=== PATIENT | female | born 1980 | race Native Hawaiian/Other Pacific Islander ===

== ENCOUNTER → 2020-03-30 10:08 | Outpatient (CLI) | payer OTHER, SELFPAY ==
[2020-03-31 09:23] LABS: COVID19 Sendout NOT DETECTED (Not Detect)
== END ==
PROVIDERS: Visit Provider Registered Nurse
DX: Z11.59 Encounter for screening for other viral diseases (principal)
CPT/HCPCS: 87635

== ENCOUNTER → 2020-04-02 09:23 | Outpatient (CLI) | payer OTHER, SELFPAY ==
--- NOTE | 2020-04-07 10:13 | PM.PFT.1 ---
Pulmonary Function Test Referral & Results Date Patient Seen: 04/02/20 Requesting provider: Lenny Aranda Results: The spirometry demonstrates an FVC of 4.07 L which is 110% of predicted. The FEV1 was measured at 3.42 L which is 113% of predicted. The FEV1/FVC ratio was 84 which is 101% of predicted. Following the administration of bronchodilator there was no appreciable change to above normal numbers. Lung volumes show an SVC of 3.90 L which is 112% of predicted. The diffusing capacity was measured at 33.99 which is 140% of predicted. The maximum voluntary ventilation was normal Interpretation: This study demonstrates normal spirometry Patient's diffusing capacity is significantly above expected normal. This can sometimes be seen in patients with asthma although the spirometry would argue against that (there is no evidence of air trapping). Other potential causes for increased diffusing capacity include left heart failure and or cardiac shunting. Clinical correlation suggested
== END ==
PROVIDERS: Referring Provider Internal Medicine Critical Care Medicine; Visit Provider Internal Medicine Critical Care Medicine
DX: R05 Cough (principal)
CPT/HCPCS: 94060; 94726; 94729

== ENCOUNTER 2022-02-19 15:55 | Emergency (ER) | payer OTHER, SELFPAY ==
[2022-02-19] VITALS (7 sets, daily range): BP systolic 123–134; BP diastolic 68–99; PULSE 77–89; RESP 18; TEMP 36.8–37.3; O2SAT 97–100
--- NOTE | 2022-02-19 18:04 | ED_ITS ---
HPI - Headache General Chief Complaint: Headache Stated Complaint: Covid+ headache, migraine Time Seen by Provider: 02/19/22 17:43 Mode of arrival: Ambulatory History of Present Illness HPI Narrative: 41F nonsmoker with known COVID+ presents with her significant other and a chief complaint of a gradually worsening headache over the past 24 hours. She does have a history of migraines but has not had 1 in quite some time. She denies any recent injury and has no neurologic symptoms such as blurring vision, trouble speech or focal extremity weakness. She takes no blood thinners. She was diagnosed with COVID last Sunday and was significantly ill for few days with typical respiratory complaints which have gradually improved and are largely absent at time of presentation. She has nausea but denies any vomiting. Her headache is worse with bright lights and loud noise, current level is 9/10. She states it is squeezing and frontal in nature, she denies radiation of pain. She has taken Tylenol and Motrin with little to no relief. She continues to have chills but denies any fever Related Data Allergies Allergy/AdvReac Type Severity Reaction Status Date / Time gluten Allergy Severe Abdominal Verified 02/19/22 18:38 Pain Review of Systems Review of Systems Narrative: GENERAL: See HPI HEENT: See HPI RESPIRATORY: See HPI CARDIOVASCULAR: Denies chest pain, palpitations, orthopnea, edema, GASTROINTESTINAL: Denies nausea, vomiting, abdominal pain, diarrhea, constipation, melena. : Denies dysuria, frequency, incontinence, hematuria, urinary retention. MUSCULOSKELETAL: denies weakness, joint pain, or bony pain SKIN: Denies rash, skin lesions, or other NEUROLOGIC: S see HPI PSYCHIATRIC: No concerning psychosocial issues. 12 point review of systems is negative except for those stated above Patient History Social History Smoking Status: Never smoker Smoking Status: Never smoker Exam Narrative Exam Narrative: GENERAL: [41] year old patient appears stated age. Well-developed patient, in mild distress. Rubbing her forehead, a calvin pulled up laying in a dark room. GCS 15 HEAD: Atraumatic. Normocephalic. EYES: Pupils equal round and reactive. Extraocular motions intact. No scleral icterus. No injection or drainage. ENT: Nose without bleeding, purulent drainage. Throat without erythema, tonsillar hypertrophy or exudate. Airway patent. NECK: Trachea midline. Non tender, no meningeal signs, negative Brudzinski's negative Kernig's days CARDIOVASCULAR: Regular rate and rhythm without murmurs, gallops, or rubs. RESPIRATORY: Clear to auscultation. Breath sounds equal bilaterally. No wheezes, rales, or rhonchi. GASTROINTESTINAL: Abdomen soft, non-tender, nondistended. EXTREMITIES: No edema or joint tenderness. BACK: Nontender without deformity or crepitance. No flank tenderness. NEURO: AOx3. SKIN: No rash or erythema of visible areas NIH Stroke Scale 1a. LOC: Patient is alert and keenly responsive (0) 1b. LOC Questions: Patient answers both LOC questions accurately (0) 1c. LOC Commands: Patient performs both tasks correctly (0) 2. Best Gaze: Normal (0) 3. Visual: No visual loss (0) 4. Facial palsy: Normal symmetrical movements (0) 5. Motor arm: No drift (0) 6. Motor leg: No drift (0) 7. Limb ataxia: Absent (0) 8. Sensory: Normal (0) 9. Best language: No aphasia; normal (0) 10. Dysarthria: Normal (0) 11. Extinction and inattention: No abnormality (0) NIHSS: 0 The uvular Initial Vital Signs Initial Vital Signs: Vital Signs Temperature 98.3 F 02/19/22 16:04 Pulse Rate 89 02/19/22 16:04 Respiratory Rate 18 02/19/22 16:04 Blood Pressure 134/79 02/19/22 16:04 Pulse Oximetry 100 02/19/22 16:04 Course Orders Ordered: Discontinued Medications Dexamethasone (Dexamethasone 10 Mg/Ml Vial) 10 mg IV NOW ONE Stop: 02/19/22 18:30 Last Admin: 02/19/22 18:57 Dose: 10 mg Documented by: AP Diphenhydramine HCl (Diphenhydramine 50 Mg/Ml Vial) 25 mg IV NOW ONE Stop: 02/19/22 18:30 Last Admin: 02/19/22 18:57 Dose: 25 mg Documented by: AP Sodium Chloride (Normal Saline 0.9%) 1,000 mls @ 1,000 mls/hr IV BOLUS ONE Stop: 02/19/22 19:28 Last Infusion: 02/19/22 20:08 Dose: 0 mls/hr Documented by: Admin: 02/19/22 18:56 Dose: 1,000 mls/hr Documented by: AP Ketorolac Tromethamine (Ketorolac 30 Mg/Ml Vial) 15 mg IV NOW ONE Stop: 02/19/22 18:30 Last Admin: 02/19/22 18:57 Dose: 15 mg Documented by: AP Metoclopramide HCl (Metoclopramide 10 Mg/2 Ml Inj) 10 mg IV NOW ONE Stop: 02/19/22 18:30 Last Admin: 02/19/22 18:57 Dose: 10 mg Documented by: AP Reevaluation(s) Reevaluation #1: Patient has significant improvement in symptoms after above-stated therapies Vital Signs Vital signs: Vital Signs - 8 hr 02/19/22 16:04 02/19/22 19:06 02/19/22 19:07 Temperature 98.3 F Pulse Rate 89 77 80 Respiratory Rate 18 Blood Pressure 134/79 130/99 H Pulse Oximetry 100 97 97 02/19/22 19:26 02/19/22 19:30 02/19/22 19:39 Temperature 99.1 F Pulse Rate 77 79 Respiratory Rate Blood Pressure 126/69 123/69 Pulse Oximetry 99 98 02/19/22 20:00 Temperature Pulse Rate 85 Respiratory Rate 18 Blood Pressure 131/68 Pulse Oximetry 98 MDM - Headache Lab Data Labs: Point of Care Testing Rapid Strep A Negative Glucose POC 82 MDM Narrative Medical decision making narrative: Headache considerations include, but not limited to: Subarachnoid hemorrhage, but unlikely as patient denies sudden onset of pain, not worst of life, or neck pain Meningitis considered, but thought unlikely given lack of Brudzinski's, Kernig's sign, altered mental status or fever Giant cell arteritis considered, but thought unlikely given lack of unilateral findings, pain in zoroastrian, vision change HTN Emergency considered, but thought unlikely given normal vitals Other serious diagnoses considered unlikely given lack of red flag findings such as sudden onset, increasing frequency, immunocompromise, systemic signs (fever, chills, stiff neck, or rash), focal neurologic findings, trauma, blood thinners, etc. Patient's symptoms improved over duration of stay with above-stated therapies. Findings and discharge diagnosis discussed with patient/family followed by verbalization of understanding Return precautions discussed with patient/family whom verbalize understanding. Discharge Plan Departure Patient Disposition: Home Clinical Impression: Migraine, COVID Instructions: DI for Headache, DI for COVID-19 (Suspected or Confirmed ) Activity Restrictions/Additional Instructions: *You have been diagnosed with [ Headache ] *What to do: *Take medications as directed *Follow up with your primary care provider in 2-3 days, call for an appointment. Let them know you were seen in the Emergency Department and that we ask that you be seen in follow up *Return to ER if you should have any new, worsening or concerning symptoms, such as [ fever > 101F, neck pain or stiffness, vomiting, confusion, seizure, focal weakness, vision change, speech deficit or other concerning symptoms ] *You have been diagnosed with [ COVID-19] *What to do: * per recommendations from the CDC and the [facility] Department of Health * stay home except to get medical care. Restrict activities outside your home, except for getting medical care. Do not go to work, school, or public areas. Avoid using public transportation, ride sharing, or taxis. * separate yourself from other people in your home. * call ahead before visiting your doctor * Wear a facemask * Cover your coughs and sneezes * Clean your hands often * Avoid sharing household items * Clean all high-touch services every day * Monitor your symptoms and seek prompt medical attention if your illness is worsening, particularly with difficulty in breathing. You may discontinue your isolation when: 1. You have been fever-free for at least 24 hours without the use of fever reducing medication, AND 2. Your symptoms are getting better, AND 3. At least 5 days have passed since symptoms first appeared 4. If you have fever, continue to stay home until fever resolves Individuals with laboratory confirmed COVID-19 who have not had any symptoms may discontinue home isolation when at least 5 days have passed since the date of their first COVID-19 diagnostic test and have had no subsequent illness You should notifiy any friends and family that have been in close contact *If up to date on COVID Vaccines, then they do not need to quarantine unless symptoms develop. Get tested on day 5 (or sooner if symptoms develop). Take precautions and watch for symptoms until day 10 *If NOT up to date on COVID Vaccines, then CDC recommends quarantine for at least 5 full days. Wear a well fitted mask at home if you must be around others. If they develop symptoms they should get tested. If they remain asymptomatic they should get tested on day 5. They should take precautions and monitor for symptoms until day 10. Referrals: Suzanne Tran ARNP [Primary Care Provider] -
--- NOTE | 2022-02-19 18:41 | PC.NURSE ---
pt relays that she has celiac dx and wants meds given in a way that they do not contain any gluten call made to [facility] clinical pharmacist at [phone] pharmacist reviewed all meds ordered and because all ordered meds are iv these ones do not contain gluten. he explained that it is typically po meds I will have to worry about containing gluten.
[2022-02-19] MEDS: SODIUM CHLORIDE 0.9% 1,000 ML 1000 ML IV (18:56)
[2022-02-19] MEDS: KETOROLAC 30 MG/ML VIAL 15 MG IV (18:57)
[2022-02-19] MEDS: diphenhydrAMINE 50 MG/ML VIAL 25 MG IV (18:57)
[2022-02-19] MEDS: DEXAMETHASONE 10 MG/ML VIAL IV (18:57)
[2022-02-19] MEDS: METOCLOPRAMIDE 10 MG/2 ML INJ IV (18:57)
== END 2022-02-19 20:14 | disposition home or self-care (01) ==
PROVIDERS: Emergency Provider Emergency Medicine; PCP Registered Nurse
DX: U07.1 COVID-19 (principal); G43.909 Migraine, unspecified, not intractable, without status migrainosus
CPT/HCPCS: 36415; 82962; 87880; 96374; 96375; 99284; J1100; J1200; J1885; J2765

== ENCOUNTER 2024-06-11 12:37 | Emergency (ER) | payer OTHER, SELFPAY ==
[2024-06-11] VITALS (18 sets, daily range): BP systolic 121–133; BP diastolic 69–78; PULSE 74–89; RESP 15–24; O2SAT 98–100; BMI 27.4
--- NOTE | 2024-06-11 12:53 | EKG_ITS ---
[address] [address] Test Date: 2024-06-11 Pat Name: Sonam Esther Department: Room: Gender: Female Lathe Set Up Person: : 1980 Requested By: Order Number: [id number] Reading MD: Dominic Brooks Measurements Intervals [place] Rate: 76 P: 67 FL: 142 QRS: 47 QRSD: 88 T: 52 QT: 388 QTc: 436 Interpretive Statements Normal sinus rhythm Electronically Signed On 06-16-2024 9:11:22 PDT by Dominic Brooks
--- NOTE | 2024-06-11 12:54 | DI.RAD.S_ITS ---
PROCEDURE: XR CHEST 1V INDICATIONS: chest pain TECHNIQUE: One view of the chest was acquired. COMPARISON: Outside Film, CR, XR CHEST 2 VIEWS, 11/12/2019, 10:22. FINDINGS: Surgical changes and devices: None. Lungs and pleura: Lungs are clear. No pleural effusions or pneumothorax. Mediastinum: Mediastinal contours appear normal. Heart size is normal. Bones and chest wall: No suspicious bony lesions. Overlying soft tissues appear unremarkable. IMPRESSION: No acute cardiopulmonary abnormality is seen. Dictated by: Omar Durbin M.D. on 06/11/2024 at 14:06 Approved by: Omar Durbin M.D. on 06/11/2024 at 14:07
--- NOTE | 2024-06-11 13:06 | ED.CHESTPAIN ---
HPI - Chest Pain General Chief Complaint: Chest Pain Stated Complaint: chest pain Time Seen by Provider: 06/11/24 13:06 Source: patient Mode of arrival: Ambulatory Limitations: no limitations History of Present Illness HPI narrative: Patient without any significant past medical history comes into the ED from home for evaluation of left-sided chest pressure states has been ongoing and persistent for the past day and a half. States that she has had history of this, however states that it has never lasted this long. She denies any recent trauma or falls, denies any pleuritic chest pain. Denies any other symptoms such as headache visual disturbances fever chills nausea vomiting abdominal pain or any other GI/ symptoms at this time. Related Data Allergies Allergy/AdvReac Type Severity Reaction Status Date / Time gluten Allergy Severe Abdominal Verified 02/19/22 18:38 Pain Review of Systems Review of Systems Narrative: HEENT: Denies headache, eye drainage, eye irritation, head trauma, sore throat, voice change Cardiovascular: Positive chest pain, Denies any palpitations, shortness of breath, tachycardia Respiratory: Denies any shortness of breath, cough, wheeze, stridor GI/: Denies any abdominal pain, nausea, vomiting, diarrhea, bright red blood per rectum, melanotic stools, urinary frequency, urinary retention, dysuria, hematuria MSK: Denies any joint pain, muscle pains, swelling Skin: Denies any rashes, lesions, discoloration Neuro: Denies any headache, lightheadedness, dizziness, fainting, weakness Psych: Denies SI/HI Patient History Social History Smoking Status: Never smoker Smoking Status: Never smoker alcohol intake frequency: other Substance Use Type: does not use Exam Narrative Exam Narrative: General: Cooperative, comfortable, well-developed, not in acute distress HEENT: Normocephalic, atraumatic, PERRLA, normal sclera, eyelids normal, Neck: Active full range of motion, atraumatic Chest: Normal to inspection, negative crepitus, no overlying erythema ecchymosis Respiratory: Normal respiratory effort, not in acute respiratory distress, clear to auscultation bilaterally negative cough, wheeze, tachypnea, rhonchi, rales Cardiology: Regular rate rhythm negative gallop, murmur, rubs GI/: Normal to inspection, soft, nonrigid, no tenderness to palpation, exam deferred MSK: Full range of active range of motion of all 4 extremities, atraumatic Skin: No rashes lesions noted Neuro: Alert awake oriented x3, moves all 4 extremities spontaneously, cranial nerves intact, able to answer all questions appropriately follows commands appropriately Psych: Cooperative, negative suicidal or homicidal ideations Initial Vital Signs Initial Vital Signs: Vital Signs Pulse Rate 89 06/11/24 12:45 Respiratory Rate 16 06/11/24 12:45 Blood Pressure 132/78 06/11/24 12:45 Pulse Oximetry 99 06/11/24 12:45 Oxygen Delivery Method Room Air 06/11/24 12:45 Course Orders Ordered: ED Orders 06/11/24 12:54 XR chest 1V Stat Complete Blood Count AUTO DIFF Stat Comprehensive Metabolic Panel Stat Lipase Stat Magnesium Stat NT-proBNP (BNP-Adult 18+) Stat PTT Partial Thromboplastin Lamin Stat Prothrombin Time INR Stat Troponin & CK Cardiac Panel Stat EKG-12 Lead Stat 06/11/24 14:50 Trop I [Troponin I] Stat Sodium Chloride (Normal Saline 0.9%) 1,000 mls @ 150 mls/hr IV CONT NICHOLAS Last Admin: 06/11/24 13:18 Dose: 150 mls/hr Documented By: CANDICE Discontinued Medications Aspirin (Aspirin 81 Mg Chew Tab) 324 mg PO NOW ONE Stop: 06/11/24 12:55 Last Admin: 06/11/24 13:18 Dose: 324 mg Documented By: CANDICE Vital Signs Vital signs: Vital Signs - 8 hr 06/11/24 12:45 06/11/24 12:51 06/11/24 12:52 Pulse Rate 89 79 77 Respiratory Rate 16 17 Blood Pressure 132/78 Pulse Oximetry 99 100 100 Oxygen Delivery Method Room Air 06/11/24 12:52 06/11/24 13:00 06/11/24 13:01 Pulse Rate 85 81 Respiratory Rate 23 16 Blood Pressure 133/75 Pulse Oximetry 100 99 Oxygen Delivery Method 06/11/24 13:01 06/11/24 13:30 06/11/24 14:00 Pulse Rate 78 82 Respiratory Rate 16 Blood Pressure 124/71 Pulse Oximetry 98 100 Oxygen Delivery Method 06/11/24 14:30 06/11/24 14:31 06/11/24 14:31 Pulse Rate 74 75 Respiratory Rate 15 19 Blood Pressure 131/72 Pulse Oximetry 100 99 Oxygen Delivery Method 06/11/24 14:40 06/11/24 14:40 06/11/24 14:50 Pulse Rate 78 Respiratory Rate 17 Blood Pressure 123/69 122/70 Pulse Oximetry 100 Oxygen Delivery Method 06/11/24 14:50 06/11/24 15:00 06/11/24 15:00 Pulse Rate 78 78 Respiratory Rate 21 21 Blood Pressure 123/73 Pulse Oximetry 100 100 Oxygen Delivery Method 06/11/24 15:10 06/11/24 15:10 06/11/24 15:20 Pulse Rate 84 83 Respiratory Rate 21 24 Blood Pressure 126/75 Pulse Oximetry 100 100 Oxygen Delivery Method 06/11/24 15:20 06/11/24 15:30 06/11/24 15:30 Pulse Rate 88 Respiratory Rate 22 Blood Pressure 121/70 125/71 Pulse Oximetry 100 Oxygen Delivery Method MDM - Chest Pain Differential Diagnosis Differential diagnosis: Likely pneumothorax, atypical chest pain, st elevation myocardial infarction and chest pain Condition is:: Improved Medical Records Data Attestation: I reviewed the patient's medical records. Lab Data Attestation: I reviewed the patient's lab results. 06/11/24 12:54 06/11/24 12:54 Labs: Lab Results 06/11/24 06/11/24 Range/Units 12:54 14:50 WBC 8.5 (4.5-11.0) X10^3/uL RBC 4.78 (4.0-5.2) X10^6/uL Hgb 14.6 (12.0-16.0) g/dL Hct 43.0 (36-46) % MCV 90.0 (80-100) fL MCH 30.5 (26-34) PG MCHC 33.9 (30-36) % RDW 12.5 (11.6-14.8) % Plt Count 204 (150-400) X10^3/uL Neut % (Auto) 72.8 (50-75) % Lymph % (Auto) 18.3 L (25-40) % Bowman % (Auto) 6.4 (3-14) % Eos % (Auto) 1.3 L (2-4) % Baso % (Auto) 1.2 (0-2) % Neut # (Auto) 6200 (9645-9895) /uL Lymph # (Auto) 1500 (4386-8735) /uL Bowman # (Auto) 500 (0-900) /uL Eos # (Auto) 100 (0-450) /uL Baso # (Auto) 100 (0-100) /uL PT 11.5 (9.4-12.5) SECONDS INR 1.0 (0.9-1.3) APTT 35 (25.1-36.5) SECONDS Sodium 136 L (137-145) mmol/L Potassium 4.0 (3.4-5.1) mmol/L Chloride 102 (98-107) mmol/L Carbon Dioxide 27 (22-32) mmol/L BUN 18 H (7-17) mg/dL Creatinine 0.66 (0.52-1.04) mg/dL Estimated GFR > 60 (>60) mL/min BUN/Creatinine Ratio 27.3 H (6-22) Glucose 80 (70-100) mg/dL Calcium 9.2 (8.4-10.2) mg/dL Magnesium 1.8 (1.6-2.3) mg/dL Total Bilirubin 1.1 (0.2-1.3) mg/dL AST 41 H (14-36) IU/L ALT 25 (<35) IU/L Alkaline Phosphatase 63 (38-126) U/L Total Creatine Kinase 195 H (30-135) U/L Troponin I < 0.012 < 0.012 (0.01-0.034) ng/mL NT-Pro-B Natriuret Pep 45 (<125) pg/mL Total Protein 7.7 (6.3-8.2) g/dL Albumin 4.4 (3.5-5.0) g/dL Globulin 3.3 (1.7-4.1) g/dL Albumin/Globulin Ratio 1.3 (1.0-2.8) Lipase 58 (23-300) U/L ECG Data Attestation: I personally reviewed and interpreted this ECG as follows: Interpretation: EKG interpreted ED physician, sinuses 76 beats per minute, QTC 436, normal axis, nonspecific ST changes no STEMI MDM Narrative Medical decision making narrative: Patient is a 44-year-old female without any significant past medical history comes into the ED from home for complaints of chest pain, patient's left side of the chest no pleuritic chest pain. Heart score 2, patient with improved symptoms after administration of medication here. Patient negative trop x2, EKG nonischemic in nature, chest x-ray without any pneumonia, patient was instructed to follow up with Cardiology and primary Care in an outpatient setting, verbalized understanding of this agrees with being discharged home with outpatient follow-up Discharge Plan Departure Patient Disposition: Home Clinical Impression: Chest pain, unspecified Qualifiers: Chest pain type: other chest pain Qualified Code(s): R07.89 - Other chest pain Referrals: Suzanne Tran ARNP [Primary Care Provider] - Leticia Mendez MD [Physician] - Stand Alone Forms: Patient Portal/API
[2024-06-11 13:11] LABS: Add Manual Diff / Slide Review NO; Basophils Absolute Auto 100 /uL (0-100); Basophils Percent Auto 1.2 % (0-2); Eosinophils Absolute Auto 100 /uL (0-450); Eosinophils Percent Auto 1.3 % (2-4); Hemoglobin 14.6 g/dL (12.0-16.0); Lymphocytes Absolute Auto 1500 /uL (1100-4500); Lymphocytes Percent Auto 18.3 % (25-40); Mean Corpuscular HGB Conc 33.9 % (30-36); Mean Corpuscular Hemoglobin 30.5 PG (26-34); Monocytes Absolute Auto 500 /uL (0-900); Monocytes Percent Auto 6.4 % (3-14); Neutrophils Absolute Auto 6200 /uL (1500-7000); Neutrophils Percent Auto 72.8 % (50-75); Platelet Count 204 X10^3/uL (150-400); Red Blood Cell Count 4.78 X10^6/uL (4.0-5.2); Red Cell Distribution Width 12.5 % (11.6-14.8); White Blood Cell Count 8.5 X10^3/uL (4.5-11.0)
[2024-06-11 13:18] LABS: Prothrombin Time 11.5 SECONDS (9.4-12.5)
[2024-06-11] MEDS: SODIUM CHLORIDE 0.9% 1,000 ML 150 ML IV (13:18)
[2024-06-11] MEDS: ASPIRIN 81 MG CHEW TAB 324 MG PO (13:18)
[2024-06-11 13:21] LABS: PTT Partial Thromboplastin Tim 35 SECONDS (25.1-36.5)
[2024-06-11 13:23] LABS: Alanine Aminotransferase 25 IU/L (<35); Albumin 4.4 g/dL (3.5-5.0); Albumin Globulin Ratio 1.3 (1.0-2.8); Alkaline Phosphatase 63 U/L (38-126); Aspartate Aminotransferase 41 IU/L (14-36); BUN Creatinine Ratio 27.3 (6-22); Bilirubin Total 1.1 mg/dL (0.2-1.3); Blood Urea Nitrogen 18 mg/dL (7-17); Calcium 9.2 mg/dL (8.4-10.2); Carbon Dioxide 27 mmol/L (22-32); Chloride 102 mmol/L (98-107); Creatine Kinase 195 U/L (30-135); Estimated Glomerular Filt Rate > 60 mL/min (>60); Globulin 3.3 g/dL (1.7-4.1); Glucose 80 mg/dL (70-100); HEMOLYSIS 29 (0-50); Lipase 58 U/L (23-300); Magnesium 1.8 mg/dL (1.6-2.3); Sodium 136 mmol/L (137-145); Total Protein 7.7 g/dL (6.3-8.2)
[2024-06-11 13:34] LABS: NT-proBNP (BNP-Adult 18+) 45 pg/mL (<125); Troponin I < 0.012 ng/mL (0.01-0.034)
[2024-06-11 15:28] LABS: Troponin I < 0.012 ng/mL (0.01-0.034)
== END 2024-06-11 16:04 | disposition home or self-care (01) ==
PROVIDERS: Emergency Provider Student in an Organized Health Care Education/Training Program; PCP Registered Nurse
DX: R07.89 Other chest pain (principal)
CPT/HCPCS: 36415; 71045; 80053; 82550; 83690; 83735; 83880; 84484; 85025; 85610; 85730; 93005; 99284

== ENCOUNTER 2024-09-24 16:43 | Emergency (ER) | payer OTHER, SELFPAY ==
[2024-09-24 16:47] VITALS: BP 152/83; PULSE 96; RESP 18; TEMP 37.1; O2SAT 96; BMI 27.4
--- NOTE | 2024-09-24 18:25 | ED.NECK ---
HPI - Neck Pain/Injury General Chief Complaint: Neck Pain/Injury Stated Complaint: head and neck pain s/p oral surgery 2 days ago Time Seen by Provider: 09/24/24 18:02 Mode of arrival: Ambulatory History of Present Illness HPI Narrative: 44-year-old female presents for neck pain. Patient had gum resection surgery 2 days ago and has been healing well. She did have some pain and saw her dental surgeon, who gave her some [place] for pain, which has been helping. Since yesterday patient has had right-sided posterior neck pain that wraps around her head to behind her right eye. She has been taking Tylenol and ibuprofen as well as a muscle relaxer she has at home without significant relief. Denies numbness, weakness, tingling. Related Data Previous Rx's Medication Instructions Recorded diazepam 2 mg tablet 2 mg PO BID PRN muscle spasm #8 09/24/24 tabs diazepam 2 mg tablet (Valium) 2 mg PO BID PRN muscle spasm #8 09/24/24 tabs Allergies Allergy/AdvReac Type Severity Reaction Status Date / Time gluten Allergy Severe Abdominal Verified 09/24/24 16:52 Pain Patient History Social History Smoking Status: Never smoker Smoking Status: Never smoker alcohol intake frequency: other Exam Initial Vital Signs Initial Vital Signs: Vital Signs Temperature 98.8 F 09/24/24 16:47 Pulse Rate 96 H 09/24/24 16:47 Respiratory Rate 18 09/24/24 16:47 Blood Pressure 152/83 H 09/24/24 16:47 Pulse Oximetry 96 09/24/24 16:47 Oxygen Delivery Method Room Air 09/24/24 16:47 Const: Awake, alert, uncomfortable, in pain Neck: No midline tenderness, no rigidity, reproducible tenderness along SCM on R Skin: Warm, Dry, intact, no rashes Neuro: AO x3, CN II-XII grossly intact, moves all extremities Course Orders Ordered: Discontinued Medications Diazepam (Diazepam 10 Mg/2 Ml Syringe) 3 mg IV NOW ONE Stop: 09/24/24 18:25 Last Admin: 09/24/24 18:40 Dose: 3 mg Documented By: JULIOCESAR Acetaminophen (Ofirmev) 1,000 mg in 100 mls @ 400 mls/hr IV NOW ONE Stop: 09/24/24 18:38 Last Infusion: 09/24/24 19:10 Dose: Infused Documented By: Admin: 09/24/24 18:41 Dose: 400 mls/hr Documented By: JULIOCESAR Ketorolac Tromethamine (Ketorolac 30 Mg/Ml Vial) 15 mg IV NOW ONE Stop: 09/24/24 18:25 Last Admin: 09/24/24 18:40 Dose: 15 mg Documented By: JULIOCESAR Vital Signs Vital signs: Vital Signs - 8 hr 09/24/24 20:34 Pulse Rate 80 Respiratory Rate 16 Blood Pressure 126/70 Pulse Oximetry 100 Oxygen Delivery Method Room Air MDM - Neck Pain/Injury MDM Narrative Medical decision making narrative: Atraumatic reproducible right-sided neck pain with associated headache. No midline tenderness, full range of motion. No neurologic signs. Unlikely to be related to dental surgery based on physical exam and description of pain. No indication for imaging at this time since pain is not midline and more consistent with musculoskeletal etiology. Patient given medications for pain with improvement in symptoms. She was counseled to continue to take Tylenol and ibuprofen as needed for pain, she was advised to do gentle stretching exercises. Small course of as needed Valium ordered for muscle relaxation. Discharge Plan Departure Patient Disposition: Home Clinical Impression: Strain of neck muscle Instructions: DI for Neck Pain Activity Restrictions/Additional Instructions: Take Tylenol and ibuprofen for muscle pains. Gentle stretching, especially under heat, can help relieve your muscles. If this does not improve your pain then a small amount of Valium has been sent to the pharmacy. This helps with muscle spasms. Do not take this medication with alcohol, narcotics, or any other muscle relaxers as this causes drowsiness. Do not take this before driving as it can cause increased risk of accidents. Prescriptions: New diazepam 2 mg tablet 2 mg PO BID PRN (Reason: muscle spasm) Qty: 8 0RF diazepam [Valium] 2 mg tablet 2 mg PO BID PRN (Reason: muscle spasm) Qty: 8 0RF Referrals: Suzanne Tran ARNP [Primary Care Provider] - Stand Alone Forms: Patient Portal/API/Survey, Work Release Note
[2024-09-24] MEDS: KETOROLAC 30 MG/ML VIAL 15 MG IV (18:40)
[2024-09-24] MEDS: diazePAM 10 MG/2 ML SYRINGE 3 MG IV (18:40)
[2024-09-24] MEDS: ACETAMINOPHEN IV 1,000 MG/100 ML VIAL 400 MG IV (18:41)
[2024-09-24 18:48] VITALS: PULSE 75; O2SAT 99
[2024-09-24 19:00] VITALS: PULSE 75; O2SAT 99
--- NOTE | 2024-09-24 19:11 | PC.NURSE ---
Pt reports oral surgery in which she had ot wear a mouthgaurd that was uncomfortable on fresh sutures/swelling. Pt then reports having a headache accompanied by neck pain. Neck pain point of tenderness to right of base of skull; tender to touch. Pt states lights are not particularly bothersome. Pt states she has taken a muscle relaxer and fiorcet and tyelonal/ibuprofen w/ no improvement of symptoms. Pt states she has tried an icepack on her head but that has also not helped her pain. Pt denies numbness/tingling.
[2024-09-24 19:30] VITALS: PULSE 65; O2SAT 99
[2024-09-24 20:00] VITALS: PULSE 67; O2SAT 99
[2024-09-24 20:34] VITALS: BP 126/70; PULSE 80; RESP 16; O2SAT 100
== END 2024-09-24 20:36 | disposition home or self-care (01) ==
PROVIDERS: Emergency Provider Emergency Medicine; PCP Registered Nurse
DX: S16.1XXA Strain of muscle, fascia and tendon at neck level, initial encounter (principal); X58.XXXA Exposure to other specified factors, initial encounter
CPT/HCPCS: 36415; 96365; 96375; 99284; J0134; J1885; J3360

== ENCOUNTER → 2024-12-05 18:47 | Outpatient (CLI) | payer OTHER, SELFPAY ==
--- NOTE | 2024-12-05 18:50 | DI.MRI.S_ITS ---
PROCEDURE: MR FOOT RT WO CON INDICATIONS: NONDISPLACED FX OF 5TH MT BONE, RT FOOG TECHNIQUE: Multiphasic, multisequence MRI of the forefoot was performed, without intravenous contrast administration. COMPARISON: [facility], CR, XR FOOT 3 VIEWS WEIGHT BEARING RIGHT, 11/27/2024, 16:41. FINDINGS: Image quality: Diagnostic Bones: There is a mildly displaced fracture cleft with edema at the proximal metaphysis of the 5th metatarsal. Moderate surrounding edema extends throughout the shaft and the 5th metatarsal base. No other acute displaced fractures identified. There are mild background degenerative changes throughout the foot. Tibiotalar degenerative changes are also seen, with subchondral lucencies at the tibial plafond. No dislocation. Soft tissues: The Lisfranc interval appears maintained. Probable partial tear of the peroneus brevis at the insertion. Tendinopathy and partial tear of the insertion also seen at the peroneus longus. There is [id number] edema throughout the lateral foot and plantar musculature surrounding the mid flexor tendons, particularly at the hallucis digitorum crossing. Bursal edema is seen between the proximal first and 2nd metatarsal shafts. The plantar plates appear intact on sagittal views. IMPRESSION: Mildly displaced fracture of the 5th metatarsal proximal metaphysis, with moderate surrounding edema throughout the metatarsal shaft and 5th metatarsal base. No dislocation. No evidence of osseous bridging by MRI, consider radiographic follow-up. Partial tears and tendinopathy of the peroneal tendons. Soft tissue edema and tendinous edema also seen throughout the lateral foot, plantar musculature, with tenosynovitis particularly surrounding the plantar crossing of the flexor digitorum and hallucis. Bursal edema is seen between the proximal 1st and 2nd metatarsal shafts. Dictated by: Edwin Martinez M.D. on 12/08/2024 at 9:05 Approved by: Edwin Martinez M.D. on 12/08/2024 at 9:12
== END ==
LOC: MRI 18:48
PROVIDERS: PCP Registered Nurse; Referring Provider Podiatrist; Visit Provider Podiatrist
DX: S92.351A Displaced fracture of fifth metatarsal bone, right foot, initial encounter for closed fracture (principal); S96.911A Strain of unspecified muscle and tendon at ankle and foot level, right foot, initial encounter; M79.89 Other specified soft tissue disorders; X58.XXXA Exposure to other specified factors, initial encounter
CPT/HCPCS: 73718